=== PATIENT | male | born 1940 | race African-American/Black ===

== ENCOUNTER 2022-03-06 20:56 | Emergency (ER) | payer OTHER, MEDICAID ==
[~2022-03-06] VITALS: Ht 195.6 cm; Wt 90.0 kg
[2022-03-06] MEDS ORDERED: IOHEXOL-350 100 ML BOTTLE ONE (21:59)
[2022-03-06 22:03] LABS: HEMATOCRIT. 29.6 % (42.0-52.0); HEMOGLOBIN. 9.9 g/dL (14.0-18.0); MEAN CORPUSCULAR HEMOGLOBIN 26.8 pg (28.0-32.0); MEAN CORPUSCULAR VOLUME 80.1 fL (80.0-94.0); MEAN PLATELET VOLUME 7.4 fl (7.4-10.4); PLATELET 483 x1000/uL (130-400); RED BLOOD CELL COUNT 3.69 mill/uL (4.7-6.1); RED CELL DISTRIBUTION WIDTH 16.3 % (11.6-14.6)
[2022-03-06 22:08] LABS: CHLORIDE 104 mEq/L (98-107)
[2022-03-06 22:19] LABS: CREATINE KINASE 282 IU/L (39-308); ETHANOL BLOOD < 10 mg/dL
[2022-03-06 22:20] LABS: CLARITY URINE TURBID (CLEAR); COLOR URINE YELLOW (YELLOW); KETONES URINE NEGATIVE (NEGATIVE); LEUKOCYTE ESTERASE URINE 3+ (NEGATIVE); NITRITE URINE NEGATIVE (NEGATIVE); OCCULT BLOOD URINE 2+ (NEGATIVE); PH URINE 5.5 (4.5-8.0); PROTEIN URINE 4+ (NEGATIVE); SPECIFIC GRAVITY URINE 1.017 (1.005-1.030); UROBILINOGEN URINE 0.2 E.U./dL (0.2-1.0)
[2022-03-06 22:34] LABS: *AMPHETAMINES SCREEN URINE NEGATIVE (NEGATIVE); *BARBITURATES SCREEN URINE NEGATIVE (NEGATIVE); *BENZODIAZEPINES SCREEN URINE NEGATIVE (NEGATIVE); *COCAINE SCREEN URINE NEGATIVE (NEGATIVE); CANNABINOID URINE SCREEN NEGATIVE (NEGATIVE); METHADONE URINE SCREEN NEGATIVE (NEGATIVE); OPIATES URINE SCREEN NEGATIVE (NEGATIVE); PHENCYCLIDINE URINE SCREEN NEGATIVE (NEGATIVE)
[2022-03-06] MEDS ORDERED: ASPIRIN 81MG TABLET PO ONE (22:45)
[2022-03-06] MEDS ORDERED: CEFTRIAXONE 1 G PREMIX 50 ML IV ONE (22:45)
[2022-03-06] MEDS ORDERED: SODIUM CHLORIDE 0.9% 1,000 ML IV ONE ×2 (22:45→23:45)
[2022-03-06] MEDS ORDERED: CLOPIDOGREL 75MG TABLET PO ONE (22:45)
[2022-03-06 22:54] LABS: PLATELET ESTIMATE INCREASED
[2022-03-07 04:00] VITALS: BP 149/92
== END 2022-03-07 05:42 | disposition short-term general hospital (02) ==
LOC: ER 20:56 → CANBEDREQ 03-08 21:04
DX: I63.9 Cerebral infarction, unspecified (principal); N30.00 Acute cystitis without hematuria; E86.0 Dehydration; I11.0 Hypertensive heart disease with heart failure; I50.9 Heart failure, unspecified; Z20.822 Contact with and (suspected) exposure to COVID-19
CPT/HCPCS: 36415; 70450; 70496; 70498; 71045; 80053; 80305; 80320; 81003; 82550; 83605; 84484; 85025; 87040; 87086; 87426; 93005; 96361; 96365; 99291; C9803; J0696; J7030; Q9967; G0480